=== PATIENT | female | born 1980 | race Asian ===

== ENCOUNTER 2019-09-27 03:07 | Emergency (ER) | payer OTHER, SELFPAY ==
[2019-09-27 03:09] VITALS: BP 111/84; PULSE 88; RESP 18; TEMP 37; O2SAT 94
--- NOTE | 2019-09-27 03:27 | ED.GENADUL_ITS ---
Discharge Plan Disposition Patient Disposition: HOME Condition: Good Discharge Details Chief Complaint: Abd Prob Clinical Impression: Diarrhea, Abdominal cramping ED Provider: Giovany Castaneda Meds and New Rx's Prescriptions: New Ondansetron Odt, 3 Tabs/Btl [Zofran Odt, 3 Tabs/Btl] 4 mg PO Q8H PRN (Reason: Nausea And Vomiting) Qty: 3 RF: 0 Continued paroxetine HCl [Paxil] 30 mg Tablet 30 mg PO DAILY RF: 0 losartan 25 mg Tablet 25 mg PO DAILY RF: 0 metoprolol succinate 25 mg Tablet Extended Release 24 Hr 25 mg PO DAILY RF: 0 Discharge Instructions Instructions: Acute Diarrhea (ED) Additional Instructions: Would stay home and rest today. Ondansetron as needed for nausea and vomiting. Plenty of fluids to stay hydrated. [place] diet as tolerated. Follow-up with primary care next week if not doing better. Return to ED for bloody diarrhea, persistent vomiting, worsening/persistent abdominal pain. Referrals: Primary Care Provider [Outside] Medical Decision Making Patient presenting with diarrhea and abdominal cramping. Abdomen itself is benign. Currently feeling better. Nonsurgical abdomen. Afebrile with good vitals. Likely gastroenteritis. Not overly concerned as abdominal pain is not persistent. She has no vomiting just nausea. Will send home with a few tablets of ondansetron so that she may hydrate orally on her own. [place] diet. Follow- up next week with PCP if not doing better. Return to ED for high fever, bloody diarrhea, persistent/worsening abdominal pain, persistent vomiting. HPI General Mode of arrival: ambulatory . Date/Time Provider Initiated Documentation: 09/27/19 03:15 . Limitations to Documentation: no limitations . Information obtained by: patient and RN notes reviewed . HPI Narrative: Patient presents to ED with complaint of abdominal cramping and diarrhea. She has some nausea but has had no vomiting. Diarrhea has been present since last night. At times watery and at times just soft. Significant cramping tonight which subsequently seem to be better since arriving here. Questionable fever subjectively at least. No bloody diarrhea. No recent travel. No recent antibiotics. No drinking from contaminated water. 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 Related Data Home Medications Medication Instructions Recorded Confirmed Ondansetron ODT, 3 tabs/btl 4 mg PO Q8H PRN #3 tab 09/27/19 [Zofran ODT, 3 tabs/btl] losartan 25 mg PO DAILY 09/27/19 09/27/19 metoprolol succinate 25 mg PO DAILY 09/27/19 09/27/19 paroxetine HCl [Paxil] 30 mg PO DAILY 09/27/19 09/27/19 Previous Rx's Medication Instructions Recorded Ondansetron ODT, 3 tabs/btl 4 mg PO Q8H PRN #3 tab 09/27/19 [Zofran ODT, 3 tabs/btl] Allergies Allergy/AdvReac Type Severity Reaction Status Date / Time Penicillins Allergy Verified 09/27/19 03:25 General Stated Complaint: Abd Prob DEWAYNE: 3 Review of Systems Narrative: As documented in HPI otherwise negative as below. Const: no fever, chills, weakness Resp: no cough, SOB, pleuritic pain CV: no CP, diaphoresis, edema, syncope GI: no vomiting; abdominal pain, nausea, diarrhea Neuro: no headache, numbness, focal weakness, confusion PFSH Medical History Carotid artery dissection (Chronic) CVA (cerebral vascular accident) (Chronic) HTN (hypertension) (Chronic) Surgical History No significant past surgical history (Acute) Social History Smoking/Tobacco Use Status: Never Alcohol Intake: never Substance use type: does not use Do you feel safe at home: Yes Do you feel safe in your relationship?: Yes Exam Narrative Exam Narrative: Vitals: Afebrile. Normal blood pressure and heart rate. Const: WDWN female in NAD. HEENT: NC/AT. Normal facial exam. Eyes: Normal conjunctiva and sclera. Neck: Supple. Trachea midline. Lungs: Normal respiratory effort. Cor: Good radial pulses. GI: Soft. NT/ND. No guarding or rebound. Neuro: A+O x 3. Normal speech, mentation, gait. Cranial nerves II - XII grossly intact. No gross motor or sensory deficit. Course Vital Signs Vital signs: Vital Signs Temperature 98.6 F 09/27/19 03:09 Pulse 88 09/27/19 03:09 Respiratory Rate 18 09/27/19 03:09 Blood Pressure 111/84 09/27/19 03:09 Pulse Oximetry 94 L 09/27/19 03:09 Temperature 98.6 F 09/27/19 03:09 Temperature Source Oral 09/27/19 03:09 Pulse 88 09/27/19 03:09 Respiratory Rate 18 09/27/19 03:09 Respiratory Effort Non-Labored 09/27/19 03:13 Blood Pressure 111/84 09/27/19 03:09 Pulse Oximetry 94 L 09/27/19 03:09 Oxygen Delivery Method Room Air 09/27/19 03:09 Oxygen Flow Rate 0 09/27/19 03:09 Pain Level 2 09/27/19 03:09
[2019-09-27] MEDS: Ondansetron O.D.T. 4 MG TABEF, 3 TABS/BTL PO (03:35)
--- NOTE | 2019-10-01 11:24 | CMPROGNOTE_ITS ---
- If Service Date Differs Date of service: 10/01/19 Time of Service: 11:24 Care Management Progress Note At the request of ED provider, CM coordinates referral to Dr. Thacker (teledoc) of [facility] to assist patient in establishing care with PCP.
== END 2019-09-27 03:38 | disposition home or self-care (01) ==
LOC: ER 03:58
PROVIDERS: Emergency Provider Emergency Medicine
DX: R19.7 Diarrhea, unspecified (principal); R10.9 Unspecified abdominal pain; I10 Essential (primary) hypertension
CPT/HCPCS: 99283

== ENCOUNTER 2020-12-25 19:07 | Emergency (ER) | payer OTHER, SELFPAY ==
[2020-12-25 19:11] VITALS: BP 147/92; PULSE 67; RESP 16; TEMP 36.5; O2SAT 100
--- NOTE | 2020-12-25 19:42 | ED.GENADUL_ITS ---
Discharge Plan Disposition Patient Disposition: HOME Condition: Stable Discharge Details Clinical Impression: Bilateral hand pain Primary Care Provider: None,None ED Provider: Ulisses Morgan Home Meds and New Rx's Prescriptions: New doxycycline hyclate 100 mg tablet 100 mg PO BID Qty: 41 RF: 0 Continued aspirin 81 mg Tablet,Chewable 81 mg PO DAILY RF: 0 paroxetine HCl [Paxil] 30 mg Tablet 30 mg PO DAILY RF: 0 losartan 25 mg Tablet 25 mg PO DAILY RF: 0 metoprolol succinate 25 mg Tablet Extended Release 24 Hr 25 mg PO DAILY RF: 0 Discharge Instructions Additional Instructions: Please take full course of antibiotic as prescribed. If symptoms persist you will need additional follow-up. I recommend making appointment with rheumatology. Please call as soon as possible to schedule an appointment Please follow-up with your primary care physician. Call for an appointment. Return to the emergency department immediately for any worsening or new concerning symptoms. Discharge Data Discharge Date/Time-TO BE ENTERED AT DEPARTURE: 12/25/20 21:50 Medical Decision Making 40yo female with prior remote history of carotid dissection and bilateral cerebellar infarcts with no residual deficits, here with bilateral hand pain with swelling and skin discoloration, intermittent since yesterday. Also with unknown insect bite LLE now with rash. Patient is neurologically intact. She has strong, equal bilateral radial pulses. There no signs of acute inflammation of the hands on initial exam. On repeat exam she did have some mild redness to her fingertips bilaterally with some mild discomfort that spontaneously resolved. Labs reviewed and nondiagnostic. No leukocytosis. Normal LFTs. Electrolytes within normal limits. CRP is normal. ESR is elevated at 39. Urinalysis reveals no proteinuria. Tick panel pending. Consider lyme disease. Will initiate treatment with doxycycline. All results were reviewed with the patient. She was encouraged to follow-up with rheumatology should symptoms persist. Patient was reassessed and asymptomatic at time of discharge. She was encouraged to return immediately for any worsening or new concerning symptoms. Lab Data Lab results reviewed: Yes I reviewed the patient's lab results. HPI General Mode of arrival: ambulatory . Date/Time Provider Initiated Documentation: 12/25/20 19:23 . Limitations to Documentation: no limitations . Information obtained by: patient . HPI Narrative: 40-year-old female with history of remote left carotid dissection and bilateral cerebellar infarcts with no residual deficits, here with chief complaint of of pain in her hands bilaterally. Pain started yesterday morning and has been intermittent since onset. Yesterday pain was severe in the morning, recurrent episodes were less painful yesterday. Today pain is stated severe at times. No provoking or modifying factors. Pain is described as burning and sharp with an itching sensation. Episodes last approximately 10 to 15 minutes. During the episodes she has associated swelling of the fingers, red 2 times purplish discoloration of her fingers, and loss of insurance claims clerk. Patient denies associated neck pain. No recent injury. She does note that she had a bite left lower leg that she sustained about 2 weeks ago which she has been itching and recently has become more inflamed. Related Data Home Medications Medication Instructions Recorded Confirmed losartan 25 mg PO DAILY 09/27/19 12/25/20 metoprolol succinate 25 mg PO DAILY 09/27/19 12/25/20 paroxetine HCl [Paxil] 30 mg PO DAILY 09/27/19 12/25/20 aspirin 81 mg PO DAILY 12/25/20 12/25/20 doxycycline hyclate 100 mg PO BID #41 tab 12/25/20 Previous Rx's Medication Instructions Recorded doxycycline hyclate 100 mg PO BID #41 tab 12/25/20 Allergies Allergy/AdvReac Type Severity Reaction Status Date / Time Penicillins Allergy Verified 12/25/20 19:16 General Stated Complaint: GenMedical DEWAYNE: 3 Review of Systems All systems reviewed & are unremarkable except as noted in HPI and below Constitutional Constitutional: Denies fever(s) and Denies headache(s) Eyes Eyes: Denies loss of vision and Denies other visual disturbances ENT Ears, Nose, Mouth, and Throat: Denies headache(s) Cardiovascular Cardiovascular: Denies chest pain and Denies dyspnea Respiratory Respiratory: Denies dyspnea Gastrointestinal Gastrointestinal: Denies abdominal pain Musculoskeletal Musculoskeletal: Reports as per HPI Integumentary/Breasts Skin/Breast: Reports as per HPI Neurologic Neurologic: Reports burning sensations (per hpi), Denies headache(s) and Denies loss of vision [facility] Medical History Carotid artery dissection CVA (cerebral vascular accident) HTN (hypertension) Surgical History No significant past surgical history Social History Smoking/Tobacco Use Status: Never Smoking risk assessment performed?: Yes Alcohol Intake: never Substance use type: does not use Do you feel safe at home: Yes Do you feel safe in your relationship?: Yes Exam Const General: cooperative and no acute distress HENMT Head: normocephalic and atraumatic Mouth: moist mucous membranes Eyes Conjunctivae: normal conjunctivae Sclera: normal sclerae Neck Neck: trachea midline and supple Resp Auscultation: clear to auscultation bilaterally, no rales, no rhonchi and no wheezes Cardio Rate: regular rate and not tachycardic Rhythm: regular rhythm Heart Sounds: no gallops, no murmurs and no rubs Pulses: radial pulses present bilaterally 2+ GI Palpation: soft, not firm, no guarding, no masses, not rigid and nontender Skin Rashes: rashes noted (3cm circular red rash surrounding central bite, no fluctuance or induration) Neuro General: patient alert, patient awake, patient oriented x3 and tone normal Extrem General: no edema Psych Appearance: grossly normal Mental Status: mental status grossly normal Speech and Movement: speech and movement normal Course Vital Signs Vital signs: Vital Signs Temperature 36.5 C 12/25/20 19:11 Pulse 67 12/25/20 19:11 Respiratory Rate 16 12/25/20 19:11 Blood Pressure 147/92 H 12/25/20 19:11 Pulse Oximetry 100 12/25/20 19:11 Temperature 36.5 C 12/25/20 19:11 Temperature Source Tympanic 12/25/20 19:11 Pulse 67 12/25/20 19:11 Respiratory Rate 16 12/25/20 19:11 Respiratory Effort Non-Labored 12/25/20 19:18 Blood Pressure 147/92 H 12/25/20 19:11 Blood Pressure Position Sitting 12/25/20 19:11 Pulse Oximetry 100 12/25/20 19:11 Oxygen Delivery Method Room Air 12/25/20 19:11 Oxygen Flow Rate 0 12/25/20 19:11 Pain Level 1 12/25/20 19:11
[2020-12-25 19:50] LABS: Abs Immature Grans 0.04 10^3/uL (0.0-0.06); Absolute Basophil Count 0.03 10^3/uL (0.0-0.2); Absolute Eosinophil Count 0.24 10^3/uL (0.0-0.7); Absolute Lymphocyte Count 1.98 10^3/uL (1.2-3.4); Absolute Monocyte Count 0.77 10^3/uL (0.1-0.8); Absolute Neutrophil Count 6.33 10^3/uL (1.2-6.7); Basophils % 0.3; Eosinophils % 2.6; HCT 39.7 % (36.0-46.0); HGB 13.3 g/dL (11.2-15.7); Immature Grans % 0.4; Lymphocytes % 21.1; MCH 31.9 pg (27.0-33.0); MCHC 33.5 % (32.0-36.0); MCV 95.2 fL (80-95); MPV 8.8 fL (8.0-11.0); Monocytes % 8.2; Neutrophils % 67.4; Nucleated RBC 0 %; Platelet Count 338 10^3/uL (130-400); RBC 4.17 10^6/uL (3.93-5.22); RDW 11.7 % (11.7-14.6); RDW-SD 40.5 fL; WBC 9.39 10^3/uL (4.4-10.8)
[2020-12-25 20:03] LABS: ALT 30 U/L (14-59); AST 17 U/L (15-37); Albumin 3.8 g/dL (3.4-5.0); Alkaline Phosphatase 83 U/L (46-116); BUN 7 mg/dL (7-18); Bilirubin, Total 0.3 mg/dL (0.2-1.0); CREATININE 0.7 mg/dL (0.55-1.02); Calcium 8.9 mg/dL (8.5-10.1); Chloride 102 mmol/L (98-107); Glucose 94 mg/dL (74-106); Potassium 3.7 mmol/L (3.5-5.1); Sodium 138 mmol/L (136-145); Total Protein 8.1 g/dL (6.4-8.2)
[2020-12-25 20:42] LABS: Bilirubin Negative (Negative); Blood Negative (Negative); Clarity Clear (Clear); Glucose Negative (Negative); Ketones Negative (Negative); Leukocyte Esterase Negative (Negative); Nitrite Negative (Negative); Specific Gravity <= 1.005 (1.005-1.025); Urobilinogen 0.2 EU/dL (Up TO 0.2)
[2020-12-25 20:50] LABS: ESR 39 mm/hr (0-20)
[2020-12-25 20:55] VITALS: BP 134/94; PULSE 62; RESP 14; O2SAT 96
[2020-12-25 20:56] VITALS: RESP 14
[2020-12-25 20:57] LABS: C-Reactive Protein 0.18 mg/dL (0.0-0.3); TSH (W/Ref FT4) 3.06 uIU/mL (0.36-3.74)
[2020-12-25] MEDS: Doxycycline Hyclate 100 MG CAP PO (21:39)
[2020-12-29 11:44] LABS: Lyme Ab w Rflx to Lyme Confirm Negative (Negative)
[2020-12-29 21:15] LABS: Anaplasma phagocytophilum Negative (Negative); B. miyamotoi PCR Negative (Negative); Babesia divergens/MO-1 Negative (Negative); Babesia duncani Negative (Negative); Babesia microti Negative (Negative); Ehrlichia chaffeensis Negative (Negative); Ehrlichia ewingii/canis Negative (Negative); Ehrlichia muris eauclairensis Negative (Negative)
== END 2020-12-25 21:50 | disposition home or self-care (01) ==
PROVIDERS: Emergency Provider Student in an Organized Health Care Education/Training Program
DX: M79.641 Pain in right hand (principal); M79.642 Pain in left hand; S80.862A Insect bite (nonvenomous), left lower leg, initial encounter; R21 Rash and other nonspecific skin eruption; W57.XXXA Bitten or stung by nonvenomous insect and other nonvenomous arthropods, initial encounter; I10 Essential (primary) hypertension
CPT/HCPCS: 36415; 80053; 85652; 87798; 99283; 81003; 84443; 85025; 86140; 86618

== ENCOUNTER 2021-02-25 17:36 | Outpatient (REF) | payer OTHER, SELFPAY ==
[2021-02-26 20:38] LABS: COVID-19 RT-PCR UVMMC Result Negative (Negative)
== END 2021-02-25 17:37 | disposition home or self-care (01) ==
LOC: LBN 17:36
PROVIDERS: Visit Provider Pediatrics
DX: Z20.822 Contact with and (suspected) exposure to COVID-19 (principal)
CPT/HCPCS: U0003